=== PATIENT | female | born 1990 | race Caucasian/White ===

== ENCOUNTER → 2017-03-11 | Outpatient (CLI) | payer OTHER ==
[2017-03-11 19:58] LABS: BASO # 0.1 K/mm3 (0.0-0.2); EOS # 0.2 K/mm3 (0.0-0.50); EOS % 4.4 % (0.0-3.0); LARGE UNSTAINED CELL # 0.1 K/mm3 (0.0-0.4); LARGE UNSTAINED CELL % 1.9 % (0.0-4.0); LYMPH # 1.7 K/mm3 (1.5-6.5); LYMPH % 26.7 % (24.0-44.0); MEAN CORPUSCULAR HGB CONC 31.3 g/dl (32.0-36.5); MEAN CORPUSCULAR VOLUME 89.5 fl (80.0-96.0); MONO # 0.4 K/mm3 (0.0-0.8); NEUTROPHILS # 3.5 K/mm3 (1.8-7.7); PLATELET COUNT, AUTOMATED 272 k/mm3 (150-450); RED CELL DISTRIBUTION WIDTH 14.6 % (11.5-14.5); WHITE BLOOD COUNT 5.8 K/mm3 (4.0-10.0)
== END ==
LOC: M WUC 18:25
PROVIDERS: ATTEND Internal Medicine Medical Oncology
DX: D64.9 Anemia, unspecified (principal)

== ENCOUNTER → 2017-03-28 | Outpatient (REF) | payer OTHER | LOC: M LAB REF 12:43 | PROVIDERS: ATTEND Internal Medicine Medical Oncology | DX: D64.9 Anemia, unspecified (principal) ==

== ENCOUNTER 2017-10-02 13:31 | Emergency (ER) | payer OTHER | END 2017-10-02 14:21 | disposition home or self-care (01) | LOC: M ED 13:31 | DX: S63.522A Sprain of radiocarpal joint of left wrist, initial encounter (principal); W00.1XXA Fall from stairs and steps due to ice and snow, initial encounter; Y92.410 Unspecified street and highway as the place of occurrence of the external cause; Y93.89 Activity, other specified; Y99.8 Other external cause status; Z98.84 Bariatric surgery status | CPT/HCPCS: 73110 ==

== ENCOUNTER → 2018-04-28 | Outpatient (REF) | payer BC ==
[2018-04-28 17:59] LABS: HEMATOCRIT 40.9 % (36.0-47.0); HEMOGLOBIN 13.6 g/dl (12.0-15.5); MEAN CORPUSCULAR HEMOGLOBIN 30.2 pg (27.0-33.0); MEAN CORPUSCULAR HGB CONC 33.3 g/dl (32.0-36.5); MEAN CORPUSCULAR VOLUME 90.9 fl (80.0-96.0); PLATELET COUNT, AUTOMATED 264 10^3/uL (150-450); WHITE BLOOD COUNT 10.3 10^3/uL (4.0-10.0)
[2018-04-28 22:29] LABS: HCG, SERUM QUANTITATIVE 76377 MIU/ML
[2018-04-29 11:44] LABS: RUBELLA IgG QUALITATIVE IMMUNE (IMMUNE)
[2018-04-29 11:52] LABS: HBsAg Prenatal NEGATIVE (NEGATIVE)
[2018-04-29 12:13] LABS: HEPATITIS C VIRUS ABY INDEX 0.3 INDEX (<0.8)
[2018-04-29 12:14] LABS: HIV 1&2 SCREEN CENTAUR NEGATIVE (NEGATIVE)
== END ==
LOC: M LAB REF 16:46
DX: O36.80X0 Pregnancy with inconclusive fetal viability, not applicable or unspecified (principal)
CPT/HCPCS: 86762

== ENCOUNTER → 2018-05-11 | Outpatient (REF) | payer BC ==
[2018-05-11 14:18] LABS: HCG, SERUM QUANTITATIVE 61213 MIU/ML
== END ==
LOC: M LAB REF 13:14
DX: Z36.89 Encounter for other specified antenatal screening (principal); Z3A.00 Weeks of gestation of pregnancy not specified
CPT/HCPCS: 84702

== ENCOUNTER → 2018-09-14 | Outpatient (CLI) | payer BC ==
[2018-09-14 16:52] LABS: HEMATOCRIT 36.1 % (36.0-47.0); MEAN CORPUSCULAR HGB CONC 33.2 g/dl (32.0-36.5); MEAN CORPUSCULAR VOLUME 96.3 fl (80.0-96.0); PLATELET COUNT, AUTOMATED 246 10^3/uL (150-450); RED BLOOD COUNT 3.75 10^6/uL (4.00-5.40); RED CELL DISTRIBUTION WIDTH 13.2 % (11.5-14.5); WHITE BLOOD COUNT 10.1 10^3/uL (4.0-10.0)
[2018-09-14 17:27] LABS: GLUCOSE CHALLENGE TEST 1 HOUR 76 MG/DL (LESS THAN 140)
[2018-09-15 08:15] LABS: AB SCREEN (INDIRECT COOMBS)VIS 1 1
== END ==
LOC: M WUC 13:10
DX: Z36.89 Encounter for other specified antenatal screening (principal)
CPT/HCPCS: 82950

== ENCOUNTER → 2018-10-16 | Outpatient (REF) | payer BC | LOC: M LAB REF 16:49 | PROVIDERS: ATTEND Obstetrics & Gynecology | DX: O36.0130 Maternal care for anti-D [Rh] antibodies, third trimester, not applicable or unspecified (principal); Z3A.00 Weeks of gestation of pregnancy not specified ==

== ENCOUNTER → 2018-10-29 | Outpatient (REF) | payer BC ==
[~2018-10-29] MED LIST: IBUP80TA PO; NORC1TAB4 PO; NORCOTAB PO; PERCOCET PO; PRENTAB29 PO
== END ==
LOC: M LAB REF 16:40
PROVIDERS: ATTEND Obstetrics & Gynecology
DX: Z34.83 Encounter for supervision of other normal pregnancy, third trimester (principal)

== ENCOUNTER → 2018-11-12 | Outpatient (REF) | payer BC | LOC: M LAB REF 16:37 | PROVIDERS: ATTEND Obstetrics & Gynecology | DX: Z34.83 Encounter for supervision of other normal pregnancy, third trimester (principal); R35.0 Frequency of micturition; Z3A.00 Weeks of gestation of pregnancy not specified ==

== ENCOUNTER 2018-12-03 04:52 | Inpatient (IN) | payer BC ==
[~2018-12-03] VITALS: Ht 172.7 cm; Wt 104.1 kg
[2018-12-03] VITALS (9 sets, daily range): BP systolic 96–117; BP diastolic 55–67
[~2018-12-03 04:52] MED LIST changes: -IBUP80TA PO; -NORC1TAB4 PO; -NORCOTAB PO; -PERCOCET PO
[2018-12-03] MEDS ORDERED: LR 1,000 ML IV SCH ×2 (05:15→09:00)
[2018-12-03] MEDS ORDERED: LR 1,000 ML IV ONE (05:15)
[2018-12-03 06:30] LABS: HEMATOCRIT 34.9 % (36.0-47.0); HEMOGLOBIN 11.3 g/dl (12.0-15.5); MEAN CORPUSCULAR HEMOGLOBIN 29.7 pg (27.0-33.0); MEAN CORPUSCULAR HGB CONC 32.4 g/dl (32.0-36.5); MEAN CORPUSCULAR VOLUME 91.8 fl (80.0-96.0); PLATELET COUNT, AUTOMATED 228 10^3/uL (150-450); WHITE BLOOD COUNT 8.3 10^3/uL (4.0-10.0)
[2018-12-03] MEDS ORDERED: BICITRA 30ML SOLN UDC PO ONE (07:30)
[2018-12-03] MEDS ORDERED: ONDANSETRON 4MG/2ML VIAL (J2405) As Ordered ONE (07:57)
[2018-12-03] MEDS ORDERED: OXYTOCIN INJ 10 UNITS/ML VIAL (J2590) As Ordered ONE (07:57)
[2018-12-03] MEDS ORDERED: dexameTHASONE 4 MG/ML 1ML VIAL (J1100) As Ordered ONE (07:57)
[2018-12-03] MEDS ORDERED: PHENYLephrine HCL 500 MCG/5 ML (100MCG/ML) SYRINGE (J2370) As Ordered ONE (07:57)
[2018-12-03] MEDS ORDERED: BUPIVACAINE/DEXTROSE 0.75% 2 ML AMP As Ordered ONE (07:57)
[2018-12-03] MEDS ORDERED: ePHEDrine SULFATE 25 MG/5 ML(5MG/ML) SYRINGE As Ordered ONE (07:57)
[2018-12-03] MEDS ORDERED: MORPHINE PRES-FREE INJ 10 MG/10 ML VIAL (J2274) As Ordered ONE (07:57)
[2018-12-03 08:24] LABS: CORD GAS ABE A 0.3; CORD GAS ABE V -1.7; CORD GAS HCO3 A 27.7 MEQ/L; CORD GAS HCO3 V 23.4 MEQ/L; CORD GAS O2 SAT A 44.9 %; CORD GAS PCO2 A 56.3 mmHg; CORD GAS PH A 7.31 UNITS; CORD GAS PH V 7.374 UNITS; CORD GAS PO2 A 21.4 mmHg; CORD GAS PO2 V 43.7 mmHg; CORD GAS SBC A 23.5 MEQ/L; CORD GAS SBC V 22.8 MEQ/L; CORD GAS TCO2 A 29.4 MEQ/L; CORD GAS TCO2 V 24.6 MEQ/L
[2018-12-03] MEDS ORDERED: OXYTOCIN DRIP 30 UNITS in APPROPRIATE DILUENT 1 EA IV SCH (08:26)
[2018-12-03] MEDS ORDERED: METHYLERGONOVINE MALEATE 0.2 MG/ML VIAL (J2210) IM PRN (08:30)
[2018-12-03] MEDS ORDERED: NORCO, ANEXSIA 5/325MG TABLET (HYDROcodone/ACETAMINOPHEN) PO PRN (08:30)
[2018-12-03] MEDS ORDERED: MOM 30ML SUSPENSION UDC PO PRN (08:30)
[2018-12-03] MEDS ORDERED: MEASLES,MUMPS,RUBELLA VACCINE INJ (MMR-II) (90707) SC SCH (08:30)
[2018-12-03] MEDS ORDERED: RHOGAM 300 MCG (1500 IU) INJ (J2790) IM SCH (08:30)
[2018-12-03] MEDS ORDERED: ONDANSETRON 4MG/2ML VIAL (J2405) IV PRN ×2 (08:30→09:00)
[2018-12-03] MEDS: DOCUSATE SODIUM 100 MG CAP PO SCH ×2 (09:00→20:57)
[2018-12-03] MEDS: PRENATAL VITAMINS CHEWABLE TABLET PO SCH (09:00)
[2018-12-03] MEDS ORDERED: fentaNYL 100 MCG/2 ML INJECTION (J3010) IV PRN (09:00)
[2018-12-03] MEDS ORDERED: NALBUPHINE HCL 10 MG/ML AMP (J2300) IV PRN (09:00)
--- NOTE | 2018-12-03 11:25 | RO ---
DATE OF PROCEDURE: 12/03/2018 Madelin is a 28-year-old female 2, para 1-0-0-1 with a history of prior sections who is being admitted at term for elective repeat section. PREOPERATIVE DIAGNOSIS: 1. Term for elective repeat section. POSTOPERATIVE DIAGNOSES: 1. Term for elective repeat section. 2. Transverse breech. PROCEDURE: 1. Repeat section. 2. Breech extraction. 3. Revision of old scar. SURGEON: Dariel Loya DO MANAGER [employer]ELD SALES: Frances Palafox CNM ANESTHESIA: Spinal. COMPLICATIONS: None. ESTIMATED BLOOD LOSS: 500 mL. FINDINGS: Live male in transverse breech position, which was delivered via a footling breech extraction. scores were 9 and 9. weight 7 pounds 8 ounces. Cord blood and cord gas were sent. PROCEDURE: After obtaining informed consent, the patient was taken to the operating room where spinal anesthetic was found to be adequate. She was then draped and prepped in the usual sterile fashion. With the help of Frances Palafox, my home care assistant, an elliptical incision was made over the old scar. This was carried down to the fascia. The old scar was removed and discarded. Incision was carried down to the fascia. Fascia incised in a midline fashion and the anterior and superior aspect of the fascia then grasped with Baudilio clamps, tented off and dissected off the rectus muscles sharply. The peritoneal cavity was then entered bluntly. A Mobius skin retractor was placed, a low-transverse uterine incision was made. At this point, clear amniotic fluid was noted. The was found to be in a transverse breech more accessible to the legs. At this point, a footling breech extraction was done. The nose and mouth were bulb suctioned. Cord doubly clamped and cut and was handed over to the waiting warmer. Cord blood and gas were sent. Placenta removed manually. The uterus cleared of all clot and debris and again the uterine incision was then repaired with the help of Frances Palafox, and two separate layers of #0 Vicryl suture. Peritoneum closed in a running fashion using #2-0 Vicryl suture. Fascia closed in two separate segment of #0 Vicryl sutures. All superficial bleeders were coagulated and skin was reapproximated in subcuticular fashion using #3-0 Vicryl on a Ramses. Steri-Strips placed. The patient tolerated the procedure well. She was then transferred to the recovery room in stable condition.
[2018-12-03] MEDS: IBUPROFEN 800 MG TAB PO SCH ×2 (13:59→22:11)
[2018-12-04] VITALS (7 sets, daily range): BP systolic 92–123; BP diastolic 53–67
[2018-12-04] MEDS: NORCO, ANEXSIA 5/325MG TABLET (HYDROcodone/ACETAMINOPHEN) PO PRN ×4 (05:07→21:19)
[2018-12-04] MEDS: IBUPROFEN 800 MG TAB PO SCH ×3 (05:12→21:20)
[2018-12-04 06:42] LABS: HEMATOCRIT 29.9 % (36.0-47.0); HEMOGLOBIN 9.8 g/dl (12.0-15.5); MEAN CORPUSCULAR HEMOGLOBIN 30.1 pg (27.0-33.0); MEAN CORPUSCULAR HGB CONC 32.8 g/dl (32.0-36.5); MEAN CORPUSCULAR VOLUME 91.7 fl (80.0-96.0); PLATELET COUNT, AUTOMATED 194 10^3/uL (150-450); RED BLOOD COUNT 3.26 10^6/uL (4.00-5.40)
[2018-12-04] MEDS ORDERED: PERCOCET PO (08:29)
[2018-12-04] MEDS ORDERED: IBUP80TA PO (08:29)
[2018-12-04] MEDS: DOCUSATE SODIUM 100 MG CAP PO SCH ×2 (11:23→21:15)
[2018-12-04] MEDS: PRENATAL VITAMINS CHEWABLE TABLET PO SCH (11:23)
[2018-12-05 02:49] VITALS: BP 97/53
[2018-12-05] MEDS: IBUPROFEN 800 MG TAB PO SCH (05:27)
[2018-12-05] MEDS: NORCO, ANEXSIA 5/325MG TABLET (HYDROcodone/ACETAMINOPHEN) PO PRN (05:33)
[2018-12-05 06:45] VITALS: BP 103/57
--- NOTE | 2018-12-05 07:39 | DS.PDOC ---
Discharge Summary General Date of Admission Dec 03, 2018 at 04:52 Date of Discharge 12/05/18 Attending Physician: Dariel Loya DO Discharge Summary PROCEDURES PERFORMED DURING STAY: Repeat section ADMITTING DIAGNOSES: 1. Term with previous section DISCHARGE DIAGNOSES: 1. Repeat section 2. Breech extraction COMPLICATIONS/CHIEF COMPLAINT: Term , Previous Ceserean Section. HISTORY OF PRESENT ILLNESS: 28yo JHONATAN 12/06/18. Admitted 12/03 for repeat ceasrean section performed by Dr Loya HOSPITAL COURSE: Uneventful DISCHARGE MEDICATIONS: Please see below. ALLERGIES: Please see below. PHYSICAL EXAMINATION ON DISCHARGE: VITAL SIGNS: Please see below. GENERAL: NAD HEENT: WNL NECK: Supple CARDIOVASCULAR EXAMINATION: HRR, normotensive RESPIRATORY EXAMINATION: Clear, unlabored ABDOMINAL EXAMINATION: Dressing removed. Steri strips in place, reinforced. No evidence dehiscence or infection. Fundus firm EXTREMITIES: Normal strength and motion bilaterally SKIN: Wound as above. Well approximated NEUROLOGICAL EXAMINATION: Intact PSYCHIATRIC EXAMINATION: Appropriate LABORATORY DATA: Please see below. PROGNOSIS: Good ACTIVITY: As tolerated DIET: Regular DISCHARGE PLAN: Home. Routine precautions DISPOSITION:Home DISCHARGE INSTRUCTIONS: 1. Routine care and precautions. Nothing vaginally. Call with fever, N/V/chills, wound exudate, foul lochia any concerns. DISCHARGE CONDITION: Stable Vital Signs/I&Os Vital Signs Date Time Temp Pulse Resp B/P (MAP) Pulse Ox O2 Delivery O2 Flow Rate FiO2 12/05/18 06:45 98.2 74 18 103/57 (72) 12/05/18 02:49 96 Discharge Medications Scheduled Ibuprofen (Ibuprofen) 800 Mg Tab, 1 TAB PO TID for pain Multivitamins/ ( 27-0.8 mg) 1 Tab Tab, 1 TAB PO DAILY, (Reported) Scheduled PRN Oxycodone/Acetaminophen (Percocet 5MG/325MG Tablet) 1 Tab Tab, 1 TAB PO QIDP PRN for pain Allergies Coded Allergies: No Known Drug Allergy (Verified Allergy, Unknown, 01/11/13) Christiana Ash CNM Dec 05, 2018 07:39
[2018-12-05] MEDS ORDERED: NORCOTAB PO (07:40)
[2018-12-05] MEDS: DOCUSATE SODIUM 100 MG CAP PO SCH (08:04)
[2018-12-05] MEDS: PRENATAL VITAMINS CHEWABLE TABLET PO SCH (08:04)
[2018-12-05] MEDS ORDERED: NORC1TAB4 PO (08:21)
== END 2018-12-05 11:10 | disposition home or self-care (01) | DRG 540 ==
LOC: M LDI 04:52 → M OBS 10:02
PROVIDERS: ADMIT Obstetrics & Gynecology; ATTEND Obstetrics & Gynecology
PROC: 10D00Z1 Extraction of Products of Conception, Low, Open Approach (ICD-10-PCS; principal; 2018-12-03 07:30)
DX: O34.211 Maternal care for low transverse scar from previous cesarean delivery (principal); O32.2XX0 Maternal care for transverse and oblique lie, not applicable or unspecified; Z3A.39 39 weeks gestation of pregnancy; Z37.0 Single live birth

== ENCOUNTER 2019-09-22 07:40 | Emergency (ER) | payer OTHER, BC ==
[~2019-09-22] VITALS: Ht 172.7 cm; Wt 92.2 kg
[~2019-09-22 07:40] MED LIST changes: +HYDR-3715 PO; +IBUP80TA PO; +NORC1TAB7 PO; +PERCOCET PO
[2019-09-22] MEDS ORDERED: IBUP-1022 PO (09:03)
[2019-09-22 09:12] VITALS: BP 122/66
--- NOTE | 2019-09-22 09:38 | REP ---
RIGHT WRIST, FOUR VIEWS: There is no evidence of an acute fracture, dislocation or intrinsic bone disease. IMPRESSION: No fracture or dislocation. Electronically Signed by Julian Aburto MD 09/22/2019 07:52 P
--- NOTE | 2019-09-22 09:39 | REP ---
RIGHT FOREARM, TWO VIEWS: There is no evidence of an acute fracture, dislocation or intrinsic bone disease. IMPRESSION: No fracture or dislocation. Electronically Signed by Julian Aburto MD 09/22/2019 07:52 P
== END 2019-09-22 09:29 | disposition home or self-care (01) ==
LOC: M ED 07:40
DX: S63.501A Unspecified sprain of right wrist, initial encounter (principal); W00.0XXA Fall on same level due to ice and snow, initial encounter; Y92.89 Other specified places as the place of occurrence of the external cause; E06.3 Autoimmune thyroiditis; Z98.84 Bariatric surgery status